=== PATIENT | male | born 1970 | race Caucasian/White ===

== ENCOUNTER 2016-07-25 21:23 | Emergency (ER) | payer SELFPAY | END 2016-07-25 22:44 | disposition left against medical advice (07) | LOC: E/R 21:23 | DX: Z53.21 Procedure and treatment not carried out due to patient leaving prior to being seen by health care provider (principal) ==

== ENCOUNTER 2018-03-11 12:40 | Day surgery (SDC) | END 2018-03-11 17:25 | disposition home or self-care (01) ==